=== PATIENT | female | born 1970 | race Hispanic/Latino ===

== ENCOUNTER 2021-12-02 11:35 | Outpatient (CLI) | payer OTHER, SELFPAY ==
[2021-12-02 13:26] LABS: Alanine Aminotransferase 18 U/L (4-35); Albumin Level 4.5 g/dL (3.5-5.1); Alkaline Phosphatase 99 U/L (38-126); Amylase 57 U/L (30-110); Aspartate Amino Transferase 24 U/L (14-36); Bilirubin,Total 0.3 mg/dL (0.2-1.3); Lipase 77 U/L (23-300)
== END 2021-12-02 11:36 | disposition home or self-care (01) ==
PROVIDERS: Visit Provider Surgery
DX: K80.10 Calculus of gallbladder with chronic cholecystitis without obstruction (principal); Z01.818 Encounter for other preprocedural examination
CPT/HCPCS: 36415; 80076; 82150; 83690; 86850; 86900; 86901

== ENCOUNTER 2021-12-06 01:19 | Day surgery (SDC) | payer OTHER, SELFPAY ==
--- NOTE | 2021-12-02 12:16 | PC.NURSE ---
Report to the Outpatient Waiting Room, entrance under the green pavilion located off [facility], at time 1000 on date _12/06/21 . OR Time: _1200 . - You and your visitor will be asked a series of questions to screen for COVID 19 for your protection. - A mask is required within the hospital. Preoperative COVID Testing Requirements: No COVID Test needed if: (proof is required; if not received patient will have Rapid Test prior to entry) - Patient has received COVID Vaccine at least 14 days prior to procedure date or - Patient has positive COVID test result within last 90 days of surgery date. COVID Test needed if above criteria is not met If not COVID vaccinated a COVID test must be conducted within 72 hours of surgery and patient is asked to isolate self from time of testing until procedure. You will go to the [employer] [facility] for your COVID testing. The [employer] [facility] site is located at the corner of [address] [facility]. You will only be called if COVID results are positive and your surgeon may reschedule your elective surgery date. Patients may have clear liquids (water, carbonated beverages, clear teas, apple juice) until 3 hours prior to surgery with a maximum of 20 ounces. - No food from midnight until time of surgery Take the following medications with a SIP of water the morning of surgery: NONE Medications to discontinue per physician NONE Date to take last dose Please no make-up, nail kyrgyz, hairspray, perfume, deodorant, or body powder the day of surgery. No jewelry (including any body piercings) or valuables the day of surgery, leave them at home. Please take a shower or bath the night before, or the morning of, surgery with an antibacterial soap. Wear comfortable, loose fitting clothing. Children are encouraged to wear pajamas. - Jewelry must be removed prior to entering the operating room. Rings and piercings that are not removed may be cut off. - The hospital will not accept responsibility for valuables. - Please leave all valuables, including medications, at home the day of surgery. HIBICLENS SHOWER MORNING OF SURGERY If you are going home after surgery, a licensed class a regional truck driver must drive you home. - NO public transportation without another adult. - We recommend that an adult stay with you for 24 hours following discharge. - We also recommend that you do not drive, make important decision, drink alcoholic beverages, or take any drugs that were not prescribed by your health care provider for at least 24 hours after your discharge time. For Pediatric surgeries, we recommend two adults accompany the child home (only one inside the building at this time). One visitor will be allowed to accompany the patient into the hospital. Patients visitor will be instructed to remain with patient at all times or leave the building. We will allow the visitor to come back to the postoperative area when patient is ready. Follow any additional instructions given to you from your surgeon. VERBAL AND WRITTEN instructions given to _PATIENT AND SON MESERET REEVES and asked if any additional questions and then verbalized understanding. Patient advised to call surgeon office or pre surgery nurse liaison [phone] if any additional questions.
[2021-12-02 12:44] VITALS: BP 129/79; PULSE 65; RESP 18; TEMP 36.8; O2SAT 97; BMI 40.8
[2021-12-06] VITALS (15 sets, daily range): BP systolic 123–151; BP diastolic 76–90; PULSE 55–82; RESP 12–20; TEMP 36.4; O2SAT 85–100
[2021-12-06] MEDS: ACETAMINOPHEN 500 MG TABLET 1000 MG PO (10:23)
[2021-12-06] MEDS: LACTATED RINGERS 1,000 ML 30 ML IV CONT ×2 (10:25→13:32)
[2021-12-06] MEDS: KETOROLAC 15 MG/ML VIAL (*BKC) IV PUSH (10:27)
--- NOTE | 2021-12-06 10:34 | WPDHPUPDATE1 ---
History and Physical Update Update Date/Time: 12/06/21 10:34 History and Physical has been reviewed, including an updated exam of the patient. There are NO changes in the patient's condition. Risks, benefits, and alternatives have been discussed and questions answered. Patient agrees to proceed with procedure.
--- NOTE | 2021-12-06 10:53 | P.PNAN_ITS ---
Anes - Initial Pre Proc Eval Procedure: Operation Date: 12/06/21 12:00 Proposed Procedures p Laparoscopic Cholecystectomy - Lizzeth Cordero MD Date/Time: 12/06/21 10:53 Surgeon: Lizzeth Cordero MD Pre Op Diagnosis: cholecystitis with stones Patient Data Age: 50 Gender: F Height: 1.65 m Weight: 112.4 kg Last Vital Signs Temp 36.4 C 12/06/21 10:23 Pulse 66 12/06/21 10:23 Resp 20 12/06/21 10:23 BP 130/76 12/06/21 10:23 Pulse Ox 97 12/06/21 10:23 Allergies Allergy/AdvReac Type Severity Reaction Status Date / Time No Known Allergies Allergy Verified 12/02/21 11:48 Home Medications Medication Instructions Recorded Confirmed Type No Home Medications 11/30/21 12/06/21 History Patient hx anesthesia problems: none Family hx anesthesia problems: none Results Review: All pre-operative results and documents have been reviewed as part of the pre-operative evaluation. [facility] Past Medical History Medical History (Updated 11/30/21 @ 10:16 by Shaneka Pearce [facility]) Kidney stones Surgical History Surgical History (Updated 11/30/21 @ 10:00 by Jessica Fonseca) History of tubal ligation 2010 Family History Family History (Updated 11/30/21 @ 10:27 by Jessica Fonseca) Father Diabetes mellitus Social History Social History (Updated 11/30/21 @ 10:07 by Jessica Fonseca) Smoking status: Never smoker Alcohol intake: never Living arrangements: alone Spiritual care concerns: No Anes - Eval Final PreProcedure Day of Procedure 12/06/21 10:53 Patient weight: morbidly obese Heart: regular rate and rhythm Lungs: clear to auscultation and normal air movement Airway: Mallampati scale class II Neurological: alert and oriented Last oral intake: >/= 8 hours ASA classification: III Emergent: no Anesthetic plan: proceed Anesthesia type and monitoring: general ETT and standard monitoring Results Review: All pre-operative results and documents have been reviewed as part of the pre-operative evaluation. Informed Consent: The patient's anesthetic plan and its attendant risks and benefits were discussed with the patient/family/POA. Questions were solicited and answers provided to the satisfaction of the patient/family/POA.
--- NOTE | 2021-12-06 10:53 | SUR.PREOP ---
1000-SON WITH PT. AND STATES PT UNDERSTANDS SOME [place] BUT SPEAKS VERY LIMITED [place]. SON SPEAKS [place] AND STATES HE TRANSLATES FOR PT. REQUESTED SON TO ASK PATIENT IF SHE PREFERS HIM TO INTERPRET OR IF SHE PREFERS TO USE THE [employer] STAMPING SERVICE. PT PREFERS TO UTILIZE SON.
[2021-12-06] MEDS: ceFAZolin 2 GM/D5W 50 ML 2 GM/50 ML BAG IVPB (12:03)
--- NOTE | 2021-12-06 13:13 | W.PM.PROC2 ---
Procedure Note - Detailed Date of Procedure 12/06/21 Pre-op Diagnosis acute cholecystitis with stones Post-op Diagnosis Same Procedure Performed Laparoscopic cholecystectomy Surgeon Lizzeth Cordero MD Anesthesia General Indications 50-year-old female presented to the office complaining of postprandial right upper quadrant abdominal pain associated with nausea and vomiting. Workup including imaging significant for cholecystitis, cholelithiasis. Findings Cholecystitis with cholelithiasis Description of Procedure The patient was taken to the operating room placed in the supine position. After adequate induction of general anesthesia, the patient was prepped and draped in normal sterile fashion. A time-out was then performed to verify the patient's identity as well as the procedure being performed. I then made a 5 mm incision in the infraumbilical region. Through this, a Veress needle was placed into the peritoneal cavity and CO2 gas was then insufflated. After adequate pneumoperitoneum was achieved, the Veress needle was removed and a 5 mm optiview trocar was placed through this incision under direct visualization. I then placed the laparoscope through this trocar site and under direct visualization placed a further 12 mm subxiphoid port as well as 2 additional 5 mm ports in the right upper abdomen. The gallbladder was then identified and was noted to be inflamed, distended, and full of gallstones. I was able to place a grasper at the dome of the gallbladder and this was retracted anterior and cephalad up over the liver. A 2nd retractor was then placed at the infundibulum and retracted laterally, this allowed visualization of the triangle of Calot. I then was able to visualize the cystic duct in its entirety from its proximal insertion into the gallbladder, to its distal junction with the common hepatic/common bile duct junction. At this point, I carefully skeletonized the proximal cystic duct with the [place] dissector. I then clipped and transected the proximal cystic duct. Next I visualized the cystic artery. Again the artery was skeletonized, clipped, and transected. I then used the Bovie cautery to take down the peritoneal attachments of the gallbladder off the liver bed. This was somewhat difficult given the amount of inflammation in the posterior space. Once the gallbladder specimen was completely detached, an endo-pouch was placed through the 12 mm port site. I then placed the gallbladder specimen into the Endo pouch and removed the endo-pouch from the 12 mm port site. Of note, we had to enlarge the 12 mm incision to allow extraction of the specimen. The specimen will now be sent to pathology for further review. I then copiously irrigated the right upper quadrant. Some mild oozing was noted in the liver bed and this was controlled with the bovie cautery. I then placed some hemostatic powder in the liver bed. Hemostasis was noted in the liver bed, the clips were noted to be in good position on both the cystic duct stump and the cystic artery stump. No other pathology was noted in the right upper quadrant. I then moved the laparoscope to the subxiphoid port. No iatrogenic injury or other pathology was noted in the lower abdomen. I then closed the 12 mm trocar site under direct visualization using the Jean cone and 0 Vicryl suture. At this point, the abdomen was desufflated and all ports removed. All port sites were then closed with 4.O Monocryl subcuticular sutures. Dermabond was placed on each incision. The patient tolerated the procedure well, was extubated in the operating room postoperative and will be transferred to the recovery room in stable condition Estimated Blood Loss 20 Drains No Packing No Pathology Yes Complications No immediate complications Condition Stable Disposition PACU
[2021-12-06] MEDS: fentaNYL CITRATE INJ (*CRX) 100 MCG/2 ML VIAL 25 MCG IV PUSH ×7 (13:43→16:25)
[2021-12-06] MEDS: oxyCODONE HCL (*CRX) 5 MG TAB IR PO (15:38)
--- NOTE | 2021-12-06 15:51 | SUR.PHASEII ---
PATIENT DOES INCENTIVE SPIROMETER INTERMITTENTLY TO MAINTAIN SATS > 95%.
== END 2021-12-06 17:12 | disposition home or self-care (01) ==
PROVIDERS: Visit Provider Surgery
PROC: 0FT44ZZ Resection of Gallbladder, Percutaneous Endoscopic Approach (ICD-10-PCS; CPT 47562; principal; 2021-12-06 12:00)
DX: K80.10 Calculus of gallbladder with chronic cholecystitis without obstruction (principal); E66.01 Morbid (severe) obesity due to excess calories; Z68.41 Body mass index [BMI] 40.0-44.9, adult
CPT/HCPCS: 47562; 36415; 80076; 82150; 83690; 86850; 86900; 86901; 88304; A9270; J0690; J1100; J1885; J2250; J2405; J2704; J2710; J3010; J7120

== ENCOUNTER 2023-07-28 14:13 | Emergency (ER) | payer OTHER, SELFPAY ==
--- NOTE | ~2023-07-28 | CT_ITS ---
EXAMINATION: CT brain wo con DATE: 07/28/2023 16:43 INDICATION: Head injury. Headache. Dizziness. TECHNIQUE: Computed tomography (CT) of the head was performed without intravenous contrast. The mA wa s adjusted according to patient size. Iterative reconstruction technique was employed. The dose-lengt h product was 605.33 mGy-cm. COMPARISON: None FINDINGS: There is no intracranial hemorrhage, acute infarction, or abnormal intracranial mass lesion . The ventricles are normal in size. The orbits are normal. There is mild mucosal thickening in the p aranasal sinuses. The mastoid air cells are normal. IMPRESSION: 1. Normal brain. Reviewed, dictated and finalized at location E. RUPTCY ASSISTANT IMPRESSION: 1. Normal brain.
[2023-07-28 14:15] VITALS: BP 136/90; PULSE 76; RESP 18; TEMP 36.6; O2SAT 100
--- NOTE | 2023-07-28 15:58 | ECG_ITS ---
Measurements Intervals [place] Rate: 62 P: 72 SD: 152 QRS: -9 QRSD: 80 T: 51 QT: 374 QTc: 380 Interpretive Statements SINUS RHYTHM NO PREVIOUS ECG AVAILABLE FOR COMPARISON Electronically Signed On 07-30-2023 10:13:25 HEAD OF MUSIC by Brandon Singh M.D.
[2023-07-28] MEDS: diphenhydrAMINE HCl INJ 50 MG/ML VIAL 25 MG IV PUSH (17:46)
[2023-07-28] MEDS: METOCLOPRAMIDE HCL INJ 10 MG/2 ML VIAL IV PUSH (17:46)
[2023-07-28] MEDS: KETOROLAC 30 MG/ML VIAL (*BKC) IV PUSH (17:46)
[2023-07-28] MEDS: LACTATED RINGERS 1,000 ML 999 ML IV CONT (17:47)
[2023-07-28 17:53] VITALS: BP 139/81; PULSE 60; RESP 18; O2SAT 97
--- NOTE | 2023-07-28 18:29 | ED.HA ---
HPI - Headache General Chief Complaint: Headache Stated Complaint: head injury 1-2 weeks ago Time Seen by Provider: 07/28/23 16:30 Source: patient Mode of arrival: ambulatory Limitations: no limitations History of Present Illness HPI Narrative: 52-year-old female presents today with intermittent headache this started about 2 weeks ago after hitting her head on a door frame. States the headaches go away when she takes aspirin. She does have some nausea, vomiting, sensitivity to light with these headaches. Intermittent dizziness with getting up. Denies any other neuro complaints. Related Data Allergies Allergy/AdvReac Type Severity Reaction Status Date / Time No Known Allergies Allergy Verified 07/28/23 14:19 Review of Systems Review of Systems: All systems reviewed & are unremarkable except as noted in HPI and below PMFSH Past Medical History Medical History Kidney stones Surgical History Surgical History History of tubal ligation 2009 Hx laparoscopic cholecystectomy 12/06/21 Family History Family History Father Diabetes mellitus Social History Social History Smoking status: Never smoker Alcohol intake: never Living arrangements: alone Spiritual care concerns: No Exam Const: General: cooperative, healthy appearing, comfortable, no acute distress and well developed Orientation/consciousness: patient oriented x3 HENMT: Head: normal to inspection Eyes: General: appearance normal, both eyes and all related structures Conjunctivae: conjunctivae normal Pupils: Equal, round and reactive pupils present Resp: Effort & Inspection: normal respiratory effort and able to speak in complete sentences Auscultation: clear to auscultation bilaterally Cardio: Rate: regular rate Rhythm: regular rhythm Heart sounds: S1 normal heart sound present and S2 normal heart sound present Neuro: General: patient oriented x3 and CN's II-XI intact bilaterally Cranial nerves: Yes CN's II-XII intact bilaterally, Yes Equal, round and reactive pupils present, Yes Nystagmus not present, Yes facial symmetry and Yes Midline tongue present Cognition (Neuro): normal cognition Speech: normal speech Gait exam (Neuro): Normal gait present Motor exam (neuro): 5/5 motor strength present throughout Course Course Emergency Course: Patient without any pain after IV medications. Will have IVF infuse and discharge. Vital Signs Vital signs: Vital Signs Temperature 97.8 F 07/28/23 14:15 Pulse Rate 76 07/28/23 14:15 Respiratory Rate 18 07/28/23 14:15 Blood Pressure 136/90 07/28/23 14:15 Pulse Oximetry 100 07/28/23 14:15 Oxygen Delivery Room Air 07/28/23 14:15 Temperature 97.8 F 07/28/23 14:15 Pulse Rate 60 07/28/23 17:53 Respiratory Rate 18 07/28/23 17:53 Blood Pressure 139/81 07/28/23 17:53 Pulse Oximetry 97 07/28/23 17:53 Oxygen Delivery Room Air 07/28/23 14:15 MDM - Headache MDM Narrative Medical decision making narrative: 52-year-old female HPI noted. CT to rule out intracranial hemorrhage. CT was negative. Suspect migraine. IV Reglan, Decadron, Toradol, Benadryl, LR given. Patient without any pain no be discharged home with planned follow-up with primary care for further evaluation. Differential Diagnosis Differential diagnosis: Likely migraine, tension headache, subarachnoid hemorrhage, headache and postconcussion syndrome Medical Records Attestation: I reviewed the patient's medical records. Imaging Data Attestation: I personally reviewed and interpreted this imaging study as follows: Radiologist's impression: Impressions Head CT 07/28/23 16:50 IMPRESSION: 1. Normal brain. Discharge Plan Discharge Clinical Impres
== END 2023-07-28 19:20 | disposition home or self-care (01) ==
PROVIDERS: Emergency Provider Nurse Practitioner Family; PCP Internal Medicine Gastroenterology
DX: R51.9 Headache, unspecified (principal); Z87.442 Personal history of urinary calculi; Z90.49 Acquired absence of other specified parts of digestive tract
CPT/HCPCS: 70450; 93005; 96361; 96374; 96375; 99284; J1100; J1200; J1885; J2765; J7120

== ENCOUNTER 2025-04-09 10:59 | Outpatient (CLI) | payer OTHER, SELFPAY ==
--- NOTE | ~2025-04-09 | MR_ITS ---
EXAMINATION: MR orbits face neck wo con DATE: 04/09/2025 11:38 INDICATION: Painful lump at the left side of the neck TECHNIQUE: Magnetic resonance imaging (MRI) of the neck was performed without intravenous contrast. A marker was placed over the mass. Sequences included axial, sagittal and coronal T1-weighted FSE and axial and coronal fluid sensitive FSE STIR. COMPARISON: None. FINDINGS: Orbits are normal. Mild mucoperiosteal thickening at the bilateral ethmoid and maxillary sinuses. No fluid in the mastoid air cells are middle ear cavities. Submandibular and parotid glands are normal and symmetric. Thyroid gland is unremarkable. There is a mildly prominent but still normal-sized 1.3 x 1.3 x 0.9 cm left submandibular lymph node which underlies the marker indicating the lesion of concern. No other pathologically enlarged facial or cervical lymphadenopathy. No masses or abnormal fluid collections. The bilateral carotid arteries and jugular veins are normal in caliber with flow voids on T2-weighted imaging consistent with their expected patency. Mild cervicothoracic dextrocurvature with minimal cervical spondylosis. IMPRESSION: 1. Palpable abnormality of concern corresponds to a mildly prominent but still normal-sized likely reactive left submandibular lymph node which measures 13 x 13 x 9 mm. Reviewed, dictated and finalized at location A.
== END 2025-04-09 11:00 | disposition home or self-care (01) ==
LOC: MICIMG 11:00
PROVIDERS: PCP Internal Medicine Gastroenterology; Visit Provider Emergency Medicine
DX: R93.89 Abnormal findings on diagnostic imaging of other specified body structures (principal)
CPT/HCPCS: 70540